=== PATIENT | female | born 1930 | race African-American/Black ===

== ENCOUNTER 2016-04-17 21:03 | Emergency (ER) | payer MEDICARE, OTHER ==
[~2016-04-17] VITALS: Ht 175.3 cm; Wt 66.2 kg
[2016-04-17 21:59] VITALS: BP 156/71
[2016-04-17 22:16] LABS: BASOPHILS % (AUTO) 1.9 % (0.0-2.0); EOSINOPHILS % (AUTO) 2.4 % (0.0-3.0); LYMPHOCYTES % (AUTO) 43.3 % (20.0-45.0); MEAN CORPUSCULAR HEMOGLOBIN 28.7 PG (27.0-31.0); MEAN CORPUSCULAR HGB CONC 30.8 G/DL (32.0-36.0); MEAN CORPUSCULAR VOLUME 93 FL (80-99); MEAN PLATELET VOLUME 6.5 FL (6.5-10.1); MONOCYTES % (AUTO) 13.5 % (1.0-10.0); PLATELET COUNT 197 K/UL (150-450); RED BLOOD COUNT 4.62 M/UL (4.20-5.40); RED CELL DISTRIBUTION WIDTH 12.4 % (11.6-14.8); WHITE BLOOD COUNT 6.5 K/UL (4.8-10.8)
[2016-04-17 22:28] LABS: INR 1.1 (0.9-1.1); PROTHROMBIN TIME 10.7 SEC (9.30-11.50)
[2016-04-17 22:33] LABS: TROPONIN I < 0.30 ng/mL (<=0.30)
[2016-04-17 22:37] LABS: ALANINE AMINOTRANSFERASE 84 U/L (3-33); ANION GAP 14 (5-15); ASPARTATE AMINO TRANSFERASE 106 U/L (5-40); CALCIUM 9.4 mg/dL (8.6-10.2); CARBON DIOXIDE 28 mEQ/L (20-30); CHLORIDE 99 mEQ/L (98-107); HEMOLYSIS 8; POTASSIUM 4.2 mEQ/L (3.4-4.9); SODIUM 141 mEQ/L (135-145); TOTAL PROTEIN 7.3 g/dL (6.6-8.7)
[2016-04-17 22:49] LABS: CKMB < 1.5 ng/mL (< 3.8)
--- NOTE | 2016-04-17 22:54 | Emergency Room Report ---
History of Present Illness General Chief Complaint: Syncope Source: Patient, Family Member, EMS Present Illness HPI Patient presents after a syncopal episode lasted several minutes. She was sitting at the dining table. There was no choking. She turned pale at that time she was unresponsive until she was laid down. After that she did take a little bit to regain full consciousness - back to baseline. There was no seizure activity. EMS transported the patient. Glucose normal. They report normal HR, but their EKG shows bradycardia. The family state the patient has been admitted twice before for syncopal episodes and both times it seemed to be related to infections. The first was related to a gallbladder infection (gall bladder removed) and the second was another type of infection they think might have been urine. The patient denies any symptoms at this time she has dementia with her recent memory that is not the greatest. She denies headache, chest pain, palpitations , fevers, cough, shortness of breath no palpitations, rashes, joint pain, dysuria, diarrhea. She does not take any medications at this time. Allergies: Coded Allergies: PENICILLIN G (Verified Allergy, Unknown, 04/17/16) Patient History Past Medical History: see triage record Past Surgical History: hans Social History Narrative Born [place] - lives with daughter Now: No Reviewed Nursing Documentation: PMH: Agreed, PSxH: Agreed Nursing Documentation-PM Past Medical History: No Stated History Review of Systems All Other Systems: negative except mentioned in HPI Physical Exam Vital Signs Date Time Temp Pulse Resp B/P Pulse Ox O2 Delivery O2 Flow Rate FiO2 04/17/16 21:03 95.9 99 17 133/79 98 04/17/16 21:59 Room Air Temperature of skin is normal (I believe the recorded temperature is in error). Sp02 EP Interpretation: reviewed, normal General Appearance: well appearing, no apparent distress, GCS 15 Head: normocephalic, atraumatic, other - frontal bossing Eyes: bilateral eye EOMI, bilateral eye PERRL, bilateral eye normal inspection ENT: moist mucus membranes Neck: supple Respiratory: lungs clear, normal breath sounds Cardiovascular #1: regular rate, rhythm, no edema Cardiovascular #2: 2+ radial (R) Gastrointestinal: normal inspection, normal bowel sounds, non tender, no mass, non-distended Musculoskeletal: back normal, normal range of motion, no calf tenderness Neurologic: alert, head of digital advertising & integration III-XII nml as tested - (possible minimal facial asymmetry), motor strength/tone normal, DTRs symmetric, sensory intact, cerebellar normal, speech normal, no Babinski, no pronator, oriented - X2 Psychiatric: mood/affect normal, other - poor recent memory Skin: normal inspection, warm/dry Medical Decision Making Diagnostic Impression: Primary Impression: Syncope Qualified Codes: R55 - Syncope and collapse Additional Impressions: Bradycardia UTI (urinary tract infection) Qualified Codes: N30.00 - Acute cystitis without hematuria Sinus arrhythmia ER Course Patient presents with syncope. DDx: arrhythmia, AMI, electrolyte imbalance, occult infection, anemia, vasovagal (no vomiting). Emergent evaluation to exclude significant cardiac illness. Non-focal neuro and no headache precludes CT scan at this time. Treatment with cardiac monitoring. Field EKG had bradycardia 48, with possible block (poor tracing). This suggests cardiac cause. Our EKG with sinus arrhythmia, normal rate. Senescent chest on CXR, Labs unremarkable except for some renal insufficiency. Patient needs observation for syncope and bradycardia. No more episodes of bradycardia here. Patient baseline neuro according to daughter. Calling EPRP. Signed out to Dr. Garnica. UA returns with UTI. Antibiotics begun. Labs Test 04/17/16 21:42 04/18/16 00:25 White Blood Count 6.5 K/UL (4.8-10.8) Red Blood Count 4.62 M/UL (4.20-5.40) Hemoglobin 13.3 G/DL (12.0-16.0) Hematocrit 43.1 % (37.0-47.0) Mean Corpuscular Volume 93 FL (80-99) Mean Corpuscular Hemoglobin 28.7 PG (27.0-31.0) Mean Corpuscular Hemoglobin Concent 30.8 G/DL (32.0-36.0) Red Cell Distribution Width 12.4 % (11.6-14.8) Platelet Count 197 K/UL (150-450) Mean Platelet Volume 6.5 FL (6.5-10.1) Neutrophils (%) (Auto) 39.0 % (45.0-75.0) Lymphocytes (%) (Auto) 43.3 % (20.0-45.0) Monocytes (%) (Auto) 13.5 % (1.0-10.0) Eosinophils (%) (Auto) 2.4 % (0.0-3.0) Basophils (%) (Auto) 1.9 % (0.0-2.0) Prothrombin Time 10.7 SEC (9.30-11.50) Prothromb Time International Ratio 1.1 (0.9-1.1) Sodium Level 141 mEQ/L (135-145) Potassium Level 4.2 mEQ/L (3.4-4.9) Chloride Level 99 mEQ/L (98-107) Carbon Dioxide Level 28 mEQ/L (20-30) Anion Gap 14 (5-15) Blood Urea Nitrogen 16 mg/dL (7-23) Creatinine 1.0 mg/dL (0.5-0.9) Estimat Glomerular Filtration Rate mL/min (>60) Glucose Level 107 mg/dL (74-106) Calcium Level 9.4 mg/dL (8.6-10.2) Total Bilirubin 0.3 mg/dL (0.0-1.2) Aspartate Amino Transf (AST/SGOT) 106 U/L (5-40) Alanine Aminotransferase (ALT/SGPT) 84 U/L (3-33) Alkaline Phosphatase 98 U/L (35-104) Total Creatine Kinase 47 U/L (26-140) Creatine Kinase MB < 1.5 ng/mL (< 3.8) Creatine Kinase MB Relative Index Troponin I < 0.30 ng/mL (<=0.30) Pro-B-Type Natriuretic Peptide 629 pg/mL (0-450) Total Protein 7.3 g/dL (6.6-8.7) Albumin 3.7 g/dL (3.5-5.2) Globulin 3.6 g/dL Albumin/Globulin Ratio 1.0 (1.0-2.7) Urine Color Yellow Urine Appearance Clear Urine pH 6.5 (4.5-8.0) Urine Specific [place] 1.015 (1.005-1.035) Urine Protein 1+ (NEGATIVE) Urine Glucose (UA) Negative (NEGATIVE) Urine Ketones Negative (NEGATIVE) Urine Occult Blood Negative (NEGATIVE) Urine Nitrite Negative (NEGATIVE) Urine Bilirubin Negative (NEGATIVE) Urine Urobilinogen 1 MG/DL (0.0-1.0) Urine Leukocyte Esterase 3+ (NEGATIVE) Urine RBC 0-2 /HPF (0 - 2) Urine WBC 20-30 /HPF (0 - 2) Urine Squamous Epithelial Cells Moderate /LPF (NONE/OCC) Urine Transitional Epithelial Cells Few /LPF (NONE) Urine Bacteria Few /HPF (NONE) Urine Mucus Few /LPF (NONE/OCC) EKG Diagnostic Results Rate: normal Rhythm: NSR ST Segments: no acute changes - sinus arrhythmia Other Impression Prehospital EKG with rate 48, NSSTTW changes, unable to determine rhythm, but appears sinus. Rhythm Strip Diag. Results EP Interpretation: yes Rhythm: NSR, no PVC's, no ectopy Chest X-Ray Diagnostic Results EP Interpretation: Yes Findings: no effusion, other - bilateral infiltrates, sl worse R but c/w CHF Number of Views: 1 Last Vital Signs Date Time Temp Pulse Resp B/P Pulse Ox O2 Delivery O2 Flow Rate FiO2 04/18/16 01:28 98.1 81 14 134/69 100 Room Air Status: improved Disposition: [facility] Condition: Serious - but stable Tremayne You M.D. Apr 17, 2016 22:54
[2016-04-18 00:17] VITALS: BP 123/56
[2016-04-18 00:33] LABS: APPEARANCE,URINE CLEAR; KETONES,URINE NEGATIVE (NEGATIVE); LEUKOCYTE ESTERASE ,URINE 3+ (NEGATIVE); NITRITE,URINE NEGATIVE (NEGATIVE); PH,URINE 6.5 (4.5-8.0); PROTEIN,URINE 1+ (NEGATIVE); UROBILINOGEN,URINE 1 MG/DL (0.0-1.0)
[2016-04-18 01:03] LABS: BACTERIA,URINE FEW /HPF; MUCUS,URINE FEW /LPF (NONE/OCC); RBC,URINE 0-2 /HPF (0 - 2); SQUAMOUS EPITHELIAL CELL,UR MODERATE /LPF (NONE/OCC); TRANSITIONAL EPI CELLS,URINE FEW /LPF; WBC,URINE 20-30 /HPF (0 - 2)
[2016-04-18 01:28] VITALS: BP 134/69
[2016-04-18] MEDS ORDERED: cefTRIAXone 1 GM in NS 55 ML IVPB ONE (02:00)
[2016-04-18 02:55] VITALS: BP 134/69
--- NOTE | 2016-04-18 11:58 | Diagnostic Imaging Report ---
Indication: Chest pain Technique: One view of the chest Comparison: none Findings: The lungs and pleural spaces are clear. Heart size is normal. Upper mediastinum is unremarkable Impression: Negative
--- NOTE | 2016-04-18 12:13 | Cardiology Report ---
APPROVED REPORT EKG Measurement Heart [id number] Sinus rhythm with marked sinus arrhythmia Possible Left atrial enlargement Left axis deviation Abnormal ECG
== END 2016-04-18 03:03 | disposition short-term general hospital (02) ==
LOC: EDBD 21:03 → EMR 22:00
DX: R55 Syncope and collapse (principal); R00.1 Bradycardia, unspecified; N39.0 Urinary tract infection, site not specified; I49.8 Other specified cardiac arrhythmias; Z88.0 Allergy status to penicillin
CPT/HCPCS: 36415; 71010; 80053; 81003; 82550; 82553; 82962; 83880; 84484; 85025; 85610; 87086; 93005; 96360; 99285; J0696